=== PATIENT | male | born 1940 | race Caucasian/White ===

== ENCOUNTER → 2016-05-20 | Outpatient (CLI) | payer MEDICARE, OTHER ==
--- OUTSIDE RECORDS SUMMARY | 2016-05-19 08:45 | XMS REPORT | Continuity of Care Document ---
Author Author [facility] Organization [facility] Address Unknown Phone Unavailable Care Team Providers Care Lead Designer Name Role Phone MARSHALL COLIN PCP Insurance Providers Payer Name Policy Number Subscriber Name Relationship [employer] [id number] Barry Palomino A 18 Self / Same As Patient Enter Insurance Name [id number] Barry Palomino A 18 Self / Same As Patient Problems No problem information available. Medications No medication information available. Social History Social History Problem Response Recorded Date/Time Recent Foreign Travel N [place] 05/24/2015 9:48am Hospital Discharge Instructions No hospital discharge instructions. Plan of Care Prescriptions See Medication Section Functional Status No functional status results. Allergies, Adverse Reactions, Alerts No known allergies. Immunizations No immunization records. Vital Signs No known vital signs results. Results No known relevant diagnostic tests, laboratory data and/or discharge summary. Procedures No known history of procedures. Encounters Encounter Location Arrival/Admit Date Discharge/Depart Date Attending Provider Discharged Recurring [facility] 05/31/15 9:36am 11:59pm AG VARGAS
--- OUTSIDE RECORDS SUMMARY | 2016-05-20 10:36 | XMS REPORT | Continuity of Care Document ---
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
== END ==
LOC: FS 05-19 08:42
PROVIDERS: ATTEND Internal Medicine Hematology & Oncology
DX: E61.1 Iron deficiency (principal); K51.90 Ulcerative colitis, unspecified, without complications; Z85.038 Personal history of other malignant neoplasm of large intestine; I25.10 Atherosclerotic heart disease of native coronary artery without angina pectoris; N18.3 Chronic kidney disease, stage 3 (moderate); G25.81 Restless legs syndrome; Z95.1 Presence of aortocoronary bypass graft; Z79.899 Other long term (current) drug therapy
CPT/HCPCS: 99213

== ENCOUNTER 2017-05-26 09:23 | Outpatient (RCR) | payer MEDICARE, OTHER ==
[~2017-05-26 09:23] MED LIST: FERRIC CARBOXYMALTOSE (CANCER) 750 MG in NS (IVPB) CANCER CENTER 250 ML IV SCH
== END 2017-08-17 | disposition home or self-care (01) ==
LOC: ONC 09:23
PROVIDERS: ATTEND Internal Medicine Hematology & Oncology
DX: E61.1 Iron deficiency (principal); K51.90 Ulcerative colitis, unspecified, without complications; Z85.038 Personal history of other malignant neoplasm of large intestine; I25.10 Atherosclerotic heart disease of native coronary artery without angina pectoris; N18.3 Chronic kidney disease, stage 3 (moderate); G25.81 Restless legs syndrome; D69.6 Thrombocytopenia, unspecified; Z95.1 Presence of aortocoronary bypass graft; Z79.899 Other long term (current) drug therapy
CPT/HCPCS: 96365

== ENCOUNTER → 2018-05-18 | Outpatient (CLI) | payer OTHER | LOC: EDSTATUS 08-18 10:09 → ONC 10:11 | PROVIDERS: ATTEND Internal Medicine Hematology & Oncology | DX: E61.1 Iron deficiency (principal); K51.90 Ulcerative colitis, unspecified, without complications; Z85.038 Personal history of other malignant neoplasm of large intestine; I25.10 Atherosclerotic heart disease of native coronary artery without angina pectoris; N18.3 Chronic kidney disease, stage 3 (moderate); G25.81 Restless legs syndrome; D69.6 Thrombocytopenia, unspecified; Z95.1 Presence of aortocoronary bypass graft; Z79.899 Other long term (current) drug therapy | CPT/HCPCS: 99213 ==

== ENCOUNTER → 2019-08-23 | Outpatient (CLI) | payer OTHER | LOC: ONC 09:57 | PROVIDERS: ATTEND Internal Medicine Hematology & Oncology | DX: E61.1 Iron deficiency (principal); K51.90 Ulcerative colitis, unspecified, without complications; Z85.038 Personal history of other malignant neoplasm of large intestine; I25.10 Atherosclerotic heart disease of native coronary artery without angina pectoris; N18.3 Chronic kidney disease, stage 3 (moderate); G25.81 Restless legs syndrome; D69.6 Thrombocytopenia, unspecified; Z95.1 Presence of aortocoronary bypass graft; Z79.899 Other long term (current) drug therapy | CPT/HCPCS: 99213 ==

== ENCOUNTER → 2020-07-17 | Outpatient (CLI) | payer MEDICARE, OTHER | LOC: ONC 09:57 | PROVIDERS: ATTEND Internal Medicine Hematology & Oncology | DX: E61.1 Iron deficiency (principal); I25.10 Atherosclerotic heart disease of native coronary artery without angina pectoris; M13.80 Other specified arthritis, unspecified site; N28.9 Disorder of kidney and ureter, unspecified; I10 Essential (primary) hypertension; E66.9 Obesity, unspecified; Z85.038 Personal history of other malignant neoplasm of large intestine; Z90.49 Acquired absence of other specified parts of digestive tract; Z96.652 Presence of left artificial knee joint; Z79.899 Other long term (current) drug therapy; Z68.29 Body mass index [BMI] 29.0-29.9, adult | CPT/HCPCS: 99213 ==